=== PATIENT | male | born 1960 | race Caucasian/White ===

== ENCOUNTER 2021-10-22 12:23 | Outpatient (CLI) | payer BC | END 2021-10-22 12:24 | disposition home or self-care (01) | LOC: CSHMRI 12:23 | PROVIDERS: ATTEND Family Medicine | DX: M54.16 Radiculopathy, lumbar region (principal); M54.12 Radiculopathy, cervical region; M47.816 Spondylosis without myelopathy or radiculopathy, lumbar region; M50.023 Cervical disc disorder at C6-C7 level with myelopathy | CPT/HCPCS: 72141; 72148 ==